=== PATIENT | male | born 1980 | race Caucasian/White ===

== ENCOUNTER 2018-11-21 02:58 | Emergency (ER) | payer SELFPAY ==
[~2018-11-21] VITALS: Ht 167.6 cm; Wt 77.1 kg
[2018-11-21 03:05] VITALS: BP 133/75
[2018-11-21] MEDS ORDERED: LIDOCAINE 2% 20 ML VIAL. IJ ONE (04:00)
--- NOTE | 2018-11-21 04:44 | PHYS DOC ---
Past Medical History Past Medical History: No Pertinent History Past Surgical History: No Surgical History Alcohol Use: Occasionally Drug Use: Marijuana Adult General Chief Complaint Chief Complaint: FINGER INJURY HPI HPI Patient is a 38 year old m p/w cc of finger pain, ran into a van. deformity noted pain severe no wrist pain Current Medications Current Medications Current Medications Medications (Trade) Dose Ordered Sig/Sampson Start Time Stop Time Status Last Admin Dose Admin Lidocaine HCl 20 ml 1X ONCE 11/21/18 04:00 11/21/18 04:01 DC 11/21/18 03:59 20 ML Allergies Allergies Allergies Coded Allergies Type Severity Reaction Last Updated Verified No Known Drug Allergies 09/26/14 No Physical Exam Physical Exam Constitutional: Well developed, well nourished, no acute distress, non-toxic appearance. [] HENT: Normocephalic, atraumatic, bilateral external ears normal, oropharynx moist, no oral exudates, nose normal. [] Eyes: PERRLA, EOMI, conjunctiva normal, no discharge. [] Abdomen: Bowel sounds normal, soft, no tenderness, no masses, no pulsatile masses. [] Skin: Warm, dry, no erythema, no rash. [] Back: No tenderness, no CVA tenderness. [] Extremities: deformity of the left pinky finger. Current Patient Data Vital Signs Vital Signs Date Time Temp Pulse Resp B/P (MAP) Pulse Ox O2 Delivery O2 Flow Rate FiO2 11/21/18 03:05 98.8 99 16 133/75 (94) 96 Room Air 98.8 EKG EKG [] Radiology/Procedures Radiology/Procedures [] Course & Med Decision Making Course & Med Decision Making Pertinent Labs and Imaging studies reviewed. (See chart for details) left fifth pinky finger dislocation lidocaine 2% plain digital block easy manual reduction splint applied xray confirmed reduction. f/u one week with hand , pt agreeable. Dragon Disclaimer Dragon Disclaimer This electronic medical record was generated, in whole or in part, using a voice recognition dictation system. Departure Departure Impression: Primary Impression: Finger dislocation Disposition: HOME, SELF-CARE Condition: STABLE Patient Instructions: Finger Dislocation, [id number] MALU KIM MD Nov 21, 2018 04:44
--- NOTE | 2018-11-21 07:39 | RAD ---
Indication: Trauma TECHNIQUE: 3 views of the left hand COMPARISON: None Findings/ impression: Dislocated fifth finger PIP joint without acute fracture. Electronically signed by: Santosh Reid DO (11/21/2018 7:37 AM) [facility]
--- NOTE | 2018-11-21 07:40 | RAD ---
Indication: Reduction of fifth finger TECHNIQUE: 2 views of the left hand COMPARISON: None FINDINGS: Interval reduction of previously dislocated fifth finger PIP joint. No acute fractures. Electronically signed by: Santosh Reid DO (11/21/2018 7:38 AM) [facility]
== END 2018-11-21 04:20 | disposition home or self-care (01) ==
LOC: ER 02:58
DX: S63.287A Dislocation of proximal interphalangeal joint of left little finger, initial encounter (principal); W20.8XXA Other cause of strike by thrown, projected or falling object, initial encounter; Y93.89 Activity, other specified; Y92.89 Other specified places as the place of occurrence of the external cause; Y99.8 Other external cause status
CPT/HCPCS: 26770; 73120; 73130; 99284; J2001